=== PATIENT | male | born 1955 | race Two or more races ===

== ENCOUNTER 2018-07-06 16:24 | Inpatient (IN) | payer SELFPAY ==
[~2018-07-06] VITALS: Ht 165.1 cm; Wt 75.7 kg
[2018-07-06] MEDS ORDERED: ASPIRIN 81MG TABLET PO ONE (19:00)
[2018-07-06] MEDS ORDERED: NITROGLYCERIN 0.4MG TABLET SL SL PRN (19:00)
[2018-07-06 20:24] LABS: CHLORIDE 107 mEq/L (98-107)
[2018-07-06 20:28] LABS: HEMATOCRIT. 42.3 % (42.0-52.0); MEAN CORPUSCULAR HEMOGLOBIN 27.1 pg (28.0-32.0); MEAN PLATELET VOLUME 6.9 fl (7.4-10.4); PLATELET 269 x1000/uL (130-400); RED BLOOD CELL COUNT 5.16 mill/uL (4.7-6.1); RED CELL DISTRIBUTION WIDTH 14.9 % (11.6-14.6)
[2018-07-06 20:30] LABS: INR 1.1; PROTHROMBIN TIME 10.9 sec (9.1-11.1)
[2018-07-06] MEDS ORDERED: MORPHINE SULFATE 4 MG/ML CPJ (NOT FOR IM USE) IV ONE (21:00)
[2018-07-06] MEDS ORDERED: ATROPINE SULFATE 1MG/ML VIAL IV ONE (21:00)
[2018-07-06] MEDS ORDERED: GLUCAGON,HUMAN RECOMBINANT 1MG/VIAL IM ONE (21:00)
[2018-07-06 21:10] LABS: PLATELET ESTIMATE NORMAL
[2018-07-06 23:17] VITALS: BP 156/73
[2018-07-06 23:46] VITALS: BP 156/73
[2018-07-07] MEDS ORDERED: ACETAMINOPHEN 650MG/20.3ML UDC GT PRN (00:15)
[2018-07-07] MEDS ORDERED: GUAIFENESIN 200MG/10ML SUGAR FREE UDC PO PRN (00:15)
[2018-07-07] MEDS ORDERED: NA PHOS,M-B/NA PHOS,DI-BA ENEMA 118ML PR PRN (00:15)
[2018-07-07] MEDS ORDERED: POTASSIUM CHLORIDE 20MEQ TABLET SR PO PRN (00:15)
[2018-07-07] MEDS ORDERED: MAGNESIUM/ALUMINUM HYDROXIDE/SIMETHICONE 30ML UDC PO PRN (00:15)
[2018-07-07] MEDS ORDERED: ACETAMINOPHEN 650MG SUPP PR PRN (00:15)
[2018-07-07] MEDS ORDERED: HYDRALAZINE 20MG/ML VIAL IV PRN (00:15)
[2018-07-07] MEDS ORDERED: DIPHENHYDRAMINE 50MG/ML VIAL IV PRN (00:15)
[2018-07-07] MEDS ORDERED: ONDANSETRON HCL 4MG/2ML INJ IV PRN (00:15)
[2018-07-07] MEDS ORDERED: DOCUSATE SODIUM 100MG CAPSULE PO PRN (00:15)
[2018-07-07] MEDS ORDERED: IPRATROPIUM/ALBUTEROL 0.5-3(2.5)MG/3ML NEB INH PRN (00:15)
[2018-07-07] MEDS ORDERED: ACETAMINOPHEN 325MG TABLET PO PRN (00:15)
[2018-07-07] MEDS: PANTOPRAZOLE SODIUM 40 MG/VIAL IV SCH (00:50)
[2018-07-07] MEDS: BENAZEPRIL 5MG TABLET PO SCH ×2 (00:50→09:00)
[2018-07-07] MEDS: HYDROCODONE/ACETAMINOPHEN 5/325MG TABLET PO PRN ×2 (00:51→09:06)
[2018-07-07] MEDS ORDERED: HYDR25TA PO (01:25)
[2018-07-07] MEDS ORDERED: TAMS-11 PO (01:25)
[2018-07-07 01:44] LABS: CLARITY URINE CLEAR (CLEAR); COLOR URINE YELLOW (YELLOW); KETONES URINE NEGATIVE (NEGATIVE); LEUKOCYTE ESTERASE URINE NEGATIVE (NEGATIVE); NITRITE URINE NEGATIVE (NEGATIVE); OCCULT BLOOD URINE NEGATIVE (NEGATIVE); PH URINE 7.5 (4.5-8.0); PROTEIN URINE NEGATIVE (NEGATIVE); SPECIFIC GRAVITY URINE 1.005 (1.005-1.030); UROBILINOGEN URINE 0.2 E.U./dL (0.2-1.0)
[2018-07-07 01:55] LABS: *AMPHETAMINES SCREEN URINE NEGATIVE (NEGATIVE); *BARBITURATES SCREEN URINE NEGATIVE (NEGATIVE); *BENZODIAZEPINES SCREEN URINE NEGATIVE (NEGATIVE); *COCAINE SCREEN URINE NEGATIVE (NEGATIVE); METHADONE URINE SCREEN NEGATIVE (NEGATIVE); OPIATES URINE SCREEN PRESUMTIVE POSITIVE (NEGATIVE)
[2018-07-07 01:57] LABS: CANNABINOID URINE SCREEN NEGATIVE (NEGATIVE); PHENCYCLIDINE URINE SCREEN NEGATIVE (NEGATIVE)
[2018-07-07 04:00] VITALS: BP 96/44
[2018-07-07] MEDS: SODIUM CHLORIDE 0.9% INJ 3ML FLUSH IVF SCH ×2 (06:25→21:33)
[2018-07-07 06:48] LABS: CREATINE KINASE 54 IU/L (39-308)
[2018-07-07 06:49] LABS: CREATINE KINASE MB FRACTION < 1.0 ng/mL (0.5-3.6)
[2018-07-07 08:00] VITALS: BP 119/49
[2018-07-07] MEDS ORDERED: PNEUMOCOCCAL 23-VAL P-SAC VAC 0.5 ML IM ONE (08:00)
[2018-07-07] MEDS: HYDROCHLOROTHIAZIDE 25MG TABLET PO SCH (09:00)
[2018-07-07] MEDS ORDERED: INFLUENZA VIRUS VACCINE(AFLURIA) 0.5ML SYR IM ONE (10:00)
[2018-07-07] MEDS: TAMSULOSIN HCL 0.4MG SR CAPSULE PO SCH (11:03)
[2018-07-07 12:00] VITALS: BP_SYST 115; BP_SYST 123; BP_SYST 125; BP_DIAS 60; BP_DIAS 73; BP_DIAS 74
[2018-07-07 15:30] LABS: BASOPHILS % 0.5 % (0.0-2.0); EOSINOPHILS % 3.2 % (0.0-5.0); HEMATOCRIT. 40.8 % (42.0-52.0); HEMOGLOBIN. 13.4 g/dL (14.0-18.0); MEAN CORPUSCULAR VOLUME 82.3 fL (80.0-94.0); MONOCYTES % 6.4 % (2.0-8.0); NEUTROPHILS % 49.9 % (40.0-76.0); PLATELET 272 x1000/uL (130-400); RED BLOOD CELL COUNT 4.96 mill/uL (4.7-6.1); RED CELL DISTRIBUTION WIDTH 14.5 % (11.6-14.6)
[2018-07-07 15:32] LABS: CHLORIDE 106 mEq/L (98-107)
[2018-07-07 15:41] LABS: CREATINE KINASE 55 IU/L (39-308)
[2018-07-07 15:43] LABS: CREATINE KINASE MB FRACTION < 1.0 ng/mL (0.5-3.6)
[2018-07-07 20:00] VITALS: BP 110/54
[2018-07-08] VITALS: BP 113/48
[2018-07-08 04:00] VITALS: BP_SYST 111; BP_SYST 129; BP_SYST 130; BP_DIAS 61; BP_DIAS 69; BP_DIAS 70
[2018-07-08] MEDS: SODIUM CHLORIDE 0.9% INJ 3ML FLUSH IVF SCH (06:18)
[2018-07-08 06:47] LABS: BASOPHILS % 0.4 % (0.0-2.0); EOSINOPHILS % 3.1 % (0.0-5.0); HEMATOCRIT. 43.1 % (42.0-52.0); HEMOGLOBIN. 14.2 g/dL (14.0-18.0); LYMPHOCYTES % 39.2 % (20.0-50.0); MEAN CORPUSCULAR HEMOGLOBIN 26.9 pg (28.0-32.0); MEAN CORPUSCULAR VOLUME 81.8 fL (80.0-94.0); MONOCYTES % 6.7 % (2.0-8.0); NEUTROPHILS % 50.6 % (40.0-76.0); PLATELET 272 x1000/uL (130-400); RED BLOOD CELL COUNT 5.27 mill/uL (4.7-6.1); RED CELL DISTRIBUTION WIDTH 14.7 % (11.6-14.6)
[2018-07-08 07:29] LABS: CHLORIDE 108 mEq/L (98-107)
[2018-07-08 07:36] LABS: LDL CHOLESTEROL 98 mg/dL (5-100)
[2018-07-08 07:38] LABS: HDL CHOLESTEROL 37 mg/dL (40-59)
[2018-07-08] MEDS: PANTOPRAZOLE SODIUM 40 MG/VIAL IV SCH (08:21)
[2018-07-08] MEDS: HYDROCHLOROTHIAZIDE 25MG TABLET PO SCH (09:21)
[2018-07-08] MEDS: TAMSULOSIN HCL 0.4MG SR CAPSULE PO SCH (09:22)
[2018-07-08] MEDS ORDERED: INFLUENZA VIRUS VACCINE(AFLURIA) 0.5ML SYR IM ONE (13:15)
[2018-07-08] MEDS ORDERED: PNEUMOCOCCAL 23-VAL P-SAC VAC 0.5 ML IM ONE (13:15)
[2018-07-08] MEDS ORDERED: SODIUM CHLORIDE 0.45% 500 ML IV NR (14:45)
[2018-07-08 15:08] VITALS: BP 136/61
== END 2018-07-08 15:50 | disposition home or self-care (01) | DRG 203 ==
LOC: ER 16:27 → 5WST 21:27 → EDBEDREQTM 21:31 → EDBEDREQ 21:31 → ENRESERV 22:26
PROVIDERS: ADMIT Family Medicine; ATTEND Family Medicine
DX: R07.89 Other chest pain (principal); I10 Essential (primary) hypertension; R00.1 Bradycardia, unspecified
CPT/HCPCS: 36415; 71045; 80061; 80305; 82550; 82553; 83880; 84484; 90686; 90732; 93005; 93306; 96374; 99285; C9113; J0461; J1610; J2270